=== PATIENT | female | born 1995 | race Caucasian/White ===

== ENCOUNTER 2016-08-19 07:59 | Emergency (ER) | payer OTHER ==
[2016-08-19 08:18] VITALS: BP 101/59
--- NOTE | 2016-08-19 15:43 | UC ---
Ear Complaint HPI - HPI Summary HPI Summary: PT P/W 2 WEEK H/O EAR PAIN IN LEFT EAR. 1 WEEK AGO PT DEVELOPED SORE THROAT, MINIMAL COUGH AND PAIN IN HER OTHER EAR. 4 DAYS AGO, PT DEVELOPED N/V(X3) AND DIARRHEA. - History of Current Complaint Chief Complaint: UCGeneralIllness Stated Complaint: EAR PAIN Time Seen by Provider: 08/19/16 08:47 Hx Obtained From: Patient Hx Last Menstrual Period: 08/17/16 ?: No Onset/Duration: Gradual Onset, Lasting Weeks - 2, Still Present Severity Initially: Moderate Severity Currently: Moderate Pain Intensity: 2 Pain Scale Used: 0-10 Numeric Aggravating Factors: Nothing Alleviating Factors: Nothing Associated Signs/Symptoms: Positive: URI Symptoms. Negative: Discharge, Hearing Loss, Foreign Body Sensation, Trauma to Ear, Swelling @ - Allergies/Home Medications Allergies/Adverse Reactions: Allergies Allergy/AdvReac Type Severity Reaction Status Date / Time No Known Allergies Allergy Verified 11/02/14 09:01 Home Medications: Home Medications traZODone TAB* [Desyrel TAB*] 50 mg PO BEDTIME PRN 08/19/16 [History Confirmed 08/19/16] PMH/Surg Hx/FS Hx/Imm Hx Psychological History Of: Reports: Anxiety, Bipolar Disorder - Surgical History Surgical History: Yes Surgery Procedure, Year, and Place: Gallbladder and bunion removal - Family History Known Family History: Negative: Cardiac Disease, Hypertension, Diabetes - Social History Occupation: Student Alcohol Use: None Substance Use Type: None Smoking Status (MU): Never Smoked Tobacco Review of Systems Constitutional: Negative Skin: Negative Eyes: Negative ENT: Sore Throat, Ear Ache, Nasal Discharge Respiratory: Cough Cardiovascular: Negative Gastrointestinal: Vomiting, Diarrhea Genitourinary: Negative Motor: Negative Neurovascular: Negative Musculoskeletal: Negative Neurological: Negative Psychological: Negative All Other Systems Reviewed And Are Negative: Yes Physical Exam Triage Information Reviewed: Yes Appearance: Well-Appearing, No Pain Distress, Well-Nourished Vital Signs: Initial Vital Signs Temp 98 F 08/19/16 08:12 Pulse 64 08/19/16 08:12 Resp 16 08/19/16 08:12 BP 101/59 08/19/16 08:12 Pulse Ox 100 08/19/16 08:12 Vital Signs Reviewed: Yes Eyes: Positive: Conjunctiva Clear. Negative: Discharge ENT: Positive: Hearing grossly normal, Pharyngeal erythema, Nasal congestion, Nasal drainage, TMs normal. Negative: Tonsillar swelling, Tonsillar exudate, Trismus, Muffled/hoarse voice Dental Exam: Normal Neck: Positive: Supple, Nontender, No Lymphadenopathy Respiratory: Positive: Lungs clear, Normal breath sounds, No respiratory distress, No accessory muscle use Cardiovascular: Positive: RRR, No Murmur Abdomen Description: Positive: Nontender, Soft, McBurney's Point Tenderness. Negative: CVA Tenderness (R), CVA Tenderness (L), Distended, Guarding Bowel Sounds: Positive: Present Musculoskeletal Exam: Normal Neurological: Positive: Alert, Muscle Tone Normal Psychological: Positive: Age Appropriate Behavior Skin Exam: Normal Ear Complaint Course/Dx - Differential Dx/Diagnosis Differential Diagnosis/HQI/PQRI: Cerumen Impaction, Otitis Externa, Otitis Media , Pharyngitis, TMJ Syndrome, URI Provider Diagnoses: URI, GASTROENTERITIS, SEROUS OTITIS Discharge - Discharge Plan Condition: Stable Disposition: HOME Prescriptions: Prochlorperazine TAB* [Compazine Tab*] 5 mg PO Q6H PRN #10 tab PRN Reason: Nausea/Vomiting Patient Education Materials: Prochlorperazine (By mouth), Upper Respiratory Infection (ED), Gastroenteritis (ED), Serous Otitis Media (ED) Forms: *School Release Referrals: SYDNEY Henderson [Primary Care Provider] - (FOLLOW UP IN 3-5 DAYS IF NOT IMPROVING)
== END 2016-08-19 09:39 | disposition home or self-care (01) ==
LOC: UCCORT 07:59
DX: J06.9 Acute upper respiratory infection, unspecified (principal); K52.9 Noninfective gastroenteritis and colitis, unspecified; H65.92 Unspecified nonsuppurative otitis media, left ear
CPT/HCPCS: 81025; 99212; G0463

== ENCOUNTER 2016-08-28 09:07 | Emergency (ER) | payer OTHER ==
[2016-08-28 09:52] VITALS: BP 108/74
--- NOTE | 2016-08-28 10:01 | UC ---
Lower Extremity/Ankle HPI - HPI Summary HPI Summary: PAIN LEFT GREAT TOE X 2 DAYS X STUB HER LEFT GREAT TOE 2 DAYS AGO + PAIN , SWELLING AND BRUISING - History of Current Complaint Chief Complaint: UCLowerExtremity Stated Complaint: LEFT BIG TOE INJURY Time Seen by Provider: 08/28/16 09:37 Hx Obtained From: Patient Hx Last Menstrual Period: 08/14/16 ?: No Onset/Duration: Sudden Onset, Lasting Days - 2, Still Present Severity Initially: Moderate Severity Currently: Moderate Aggravating Factor(s): Standing, Ambulation Alleviating Factor(s): Rest, Ice - Allergies/Home Medications Allergies/Adverse Reactions: Allergies Allergy/AdvReac Type Severity Reaction Status Date / Time No Known Allergies Allergy Verified 08/28/16 09:45 Home Medications: Home Medications Ibuprofen TAB* [Motrin TAB* 800 MG] 800 mg PO Q6H PRN 08/28/16 [History Confirmed 08/28/16] PMH/Surg Hx/FS Hx/Imm Hx Psychological History Of: Reports: Anxiety, Bipolar Disorder - Surgical History Surgical History: Yes Surgery Procedure, Year, and Place: Gallbladder and bunion removal. APPENDECTOMY - Family History Known Family History: Negative: Cardiac Disease, Hypertension, Diabetes - Social History Alcohol Use: Occasionally Substance Use Type: None Smoking Status (MU): Never Smoked Tobacco Review of Systems Constitutional: Negative Skin: Negative Eyes: Negative ENT: Negative Respiratory: Negative Cardiovascular: Negative All Other Systems Reviewed And Are Negative: Yes Physical Exam Triage Information Reviewed: Yes Appearance: Well-Appearing, No Pain Distress, Well-Nourished Vital Signs: Initial Vital Signs Temp 99.3 F 08/28/16 09:46 Pulse 90 08/28/16 09:46 Resp 16 08/28/16 09:46 BP 108/74 08/28/16 09:46 Pulse Ox 100 08/28/16 09:46 Vital Signs Reviewed: Yes Eyes: Positive: Conjunctiva Clear ENT: Positive: Normal ENT inspection, Hearing grossly normal, Pharynx normal Neck: Positive: Supple, Nontender, No Lymphadenopathy Respiratory: Positive: Chest non-tender, Lungs clear, Normal breath sounds Cardiovascular: Positive: RRR, No Murmur, Pulses Normal Musculoskeletal: Positive: Other: - LEFT GREAT TOE: + MILD ECCHYMOSIS, + TENDERNESS MP / DID JOINS , + MILD SWELLING Lower Extremity Course/Dx - Differential Dx/Diagnosis Provider Diagnoses: CONTUSION LEFT GREAT TOE Discharge - Discharge Plan Condition: Stable Disposition: HOME Patient Education Materials: Foot Contusion (ED) Referrals: SYDNEY Henderson [Primary Care Provider] - 7 Days
--- NOTE | 2016-08-28 10:31 | RAD ---
INDICATION: Hyperextension injury to left great toe the previous night TECHNIQUE: 3 views of the left great toe were obtained. FINDINGS: There is a medullary screw spanning the distal left great toe metatarsal. The visualized bones are otherwise adequately corticated and appropriately aligned. IMPRESSION: No radiographic evidence of acute fracture or dislocation. Postoperative findings include intramedullary screws spanning the left great toe distal metatarsal.
== END 2016-08-28 10:48 | disposition home or self-care (01) ==
LOC: UCCORT 09:07
DX: S90.112A Contusion of left great toe without damage to nail, initial encounter (principal); X58.XXXA Exposure to other specified factors, initial encounter; Y92.9 Unspecified place or not applicable
CPT/HCPCS: 99211; G0463

== ENCOUNTER 2017-02-24 07:26 | Emergency (ER) | payer OTHER ==
[2017-02-24 07:37] VITALS: BP 105/68
--- NOTE | 2017-02-24 07:51 | UC ---
Complaint Female HPI - HPI Summary HPI Summary: Urinary frequency x4 days. C/o persistent nausea x2 months. Also c/o swollen lymph nodes to left side of neck x5 months. LMP today. No new sexual partners. No fever or chills. 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 She gets diarrhea when she eats fatty meals since her gallbladder removed. [ End ] - History Of Current Complaint Chief Complaint: UCGeneralIllness Stated Complaint: UTI SYMPTOMS, NAUSEA Time Seen by Provider: 02/24/17 07:44 Hx Obtained From: Patient Hx Last Menstrual Period: 02/24/17 ?: No Onset/Duration: Gradual Onset Timing: Intermittent Severity Initially: Moderate Associated Signs And Symptoms: Positive: Nausea. Negative: Fever, Back Pain, Vaginal Bleeding/Discharge, Vaginal Discharge, Vomiting(# Of Episodes =) - Allergies/Home Medications Allergies/Adverse Reactions: Allergies Allergy/AdvReac Type Severity Reaction Status Date / Time No Known Allergies Allergy Verified 02/24/17 07:30 Home Medications: Home Medications Cetirizine* [ZyrTEC 10 MG TAB*] 10 mg PO DAILY 02/24/17 [History Confirmed 02/24] PMH/Surg Hx/FS Hx/Imm Hx Previously Healthy: Yes - Surgical History Surgical History: Yes Surgery Procedure, Year, and Place: [place] 2014, appy 2015, bunion removal - Family History Known Family History: Negative: Cardiac Disease, Hypertension, Diabetes - Social History Occupation: Student Lives: With Family Alcohol Use: Occasionally Substance Use Type: None Smoking Status (MU): Never Smoked Tobacco Review of Systems Constitutional: Fatigue Skin: Negative Eyes: Negative ENT: Negative Respiratory: Negative Cardiovascular: Negative Gastrointestinal: Diarrhea, Nausea Genitourinary: Dysuria, Frequency Motor: Negative Neurovascular: Negative Musculoskeletal: Negative Neurological: Negative Psychological: Negative All Other Systems Reviewed And Are Negative: Yes Physical Exam Triage Information Reviewed: Yes Appearance: Well-Appearing, No Pain Distress, Well-Nourished Vital Signs: Initial Vital Signs Temp 98.5 F 02/24/17 07:31 Pulse 64 02/24/17 07:31 Resp 16 02/24/17 07:31 BP 105/68 02/24/17 07:31 Pulse Ox 100 02/24/17 07:31 Vital Signs Reviewed: Yes Eye Exam: Normal ENT Exam: Normal Dental Exam: Normal Neck exam: Normal Neck: Positive: Supple, Enlarged Nodes @ - left anterior cervical moderate size < 5mm Respiratory Exam: Normal Cardiovascular Exam: Normal Abdominal Exam: Normal Musculoskeletal Exam: Normal Neurological Exam: Normal Psychological Exam: Normal Skin Exam: Normal Complaint Female Dx - Course Course Of Treatment: Variety of concerns. Advised to establish care with PCP as she states she can never get in to [facility]. Go to [facility] for f/u. Consider PCP Belinda or on Eduard Hirsch. If Sx not improved needs f/u for imaging of anterior cervical lymph node but treat as lymphadenitis at this time. Non smoker. Lymph node swollen on and off for a couple months but worsened in the past 2 weeks. She is aware if node not completely improved 100 % she may need imaging and can return here or go to PCP. Take meds prn for diarrhea. Consider PPI for 2 weeks if develops GERD like Sx. U/A clean and LMP today. - Differential Dx/Diagnosis Differential Diagnosis/HQI/PQRI: Ovarian Cyst, Urinary Tract Infection Provider Diagnoses: Lymphadenitis, Diarrhea Discharge - Discharge Plan Condition: Good Disposition: HOME Prescriptions: Cholestyramine [Questran] 4 gm PO BID #30 btl Doxycycline (Monohydrate) [Doxycycline Monohydrate] 100 mg PO BID #20 cap Patient Education Materials: Adenitis (ED) Referrals: SYDNEY Henderson [Primary Care Provider] - 3 Days Additional Instructions: As we discussed you can use cholestyramine or bile acid sequestrants to reduce diarrhea symptmos in the future. If your lymph nodes are not 100% improved in 2 weeks then go to your PCP or here for potential imaging. For nausea consider paris cynthia or Vitamin B 6. Good luck with finding a new PCP if needed.
== END 2017-02-24 08:16 | disposition home or self-care (01) ==
LOC: UCCORT 07:26
DX: I88.9 Nonspecific lymphadenitis, unspecified (principal); R19.7 Diarrhea, unspecified; R11.0 Nausea; Z90.49 Acquired absence of other specified parts of digestive tract
CPT/HCPCS: 81003; 99212; G0463

== ENCOUNTER 2017-11-27 07:03 | Emergency (ER) | payer OTHER ==
[2017-11-27 07:26] VITALS: BP 109/71
--- NOTE | 2017-11-27 07:42 | UC ---
Throat Pain/Nasal Mahad HPI - HPI Summary HPI Summary: Pt presents with 5-6 days cough, nasal congestion. pt states was initially clear sputum, now progressed to green. + body aches and fatigue. No sob. intermittent wheeze - improved with coughing. Pt has used OTC Nyquil and Sudafed with little relief. No rash. No cp. No abd pain. No nausea, vomiting. No rash. LMP 2 weeks Pt's medications reviewed this visit. - History of Current Complaint Chief Complaint: UCRespiratory Stated Complaint: UPPER RESPITORY,COUGH Time Seen by Provider: 11/27/17 07:40 Hx Obtained From: Patient Hx Last Menstrual Period: ~11/15/17 ?: No Onset/Duration: Gradual Onset Severity: Mild Pain Intensity: 0 Cough: Sputum Appears - green Associated Signs & Symptoms: Positive: Negative - Allergies/Home Medications Allergies/Adverse Reactions: Allergies Allergy/AdvReac Type Severity Reaction Status Date / Time No Known Allergies Allergy Verified 11/27/17 07:30 Home Medications: Home Medications Escitalopram (NF) [Lexapro 5 mg (NF)] 5 mg PO DAILY 11/27/17 [History Confirmed 11/27/17] PMH/Surg Hx/FS Hx/Imm Hx Previously Healthy: Yes - Surgical History Surgical History: Yes Surgery Procedure, Year, and Place: Appendectomy, 2014, [facility], [place]; Cholecystectomy, 2013, [place]; Left Bunionectomy, 2012, [place] - Family History Known Family History: Positive: None Negative: Cardiac Disease, Hypertension, Diabetes - Social History Occupation: Employed Full-time - social work Lives: With Family Alcohol Use: Rare Substance Use Type: Marijuana Substance Use Comment - Amount & Last Used: Five Days a Week Smoking Status (MU): Never Smoked Tobacco Review of Systems Constitutional: Chills, Fatigue Respiratory: Cough All Other Systems Reviewed And Are Negative: Yes Physical Exam Triage Information Reviewed: Yes Appearance: Well-Appearing, No Pain Distress, Well-Nourished Vital Signs: Initial Vital Signs Temp 99.4 F 11/27/17 07:21 Pulse 88 11/27/17 07:21 Resp 16 11/27/17 07:21 BP 109/71 11/27/17 07:21 Pulse Ox 100 11/27/17 07:21 Vital Signs Reviewed: Yes Eye Exam: Normal Eyes: Positive: Conjunctiva Clear ENT: Positive: Hearing grossly normal, Other - fluid left ear turbinates inflammed and boggy + PND uvula midline No exudate, no erythema Dental Exam: Normal Neck exam: Normal Neck: Positive: Supple, Nontender Respiratory: Positive: Other: - coarse cough intermittent scattered wheeze + BS throughout no retraction, no accessory muscle use Cardiovascular Exam: Normal Abdominal Exam: Normal Musculoskeletal Exam: Normal Musculoskeletal: Positive: Strength Intact Neurological Exam: Normal Neurological: Positive: Alert Psychological Exam: Normal Psychological: Positive: Normal Response To Family Skin Exam: Normal Throat Pain/Nasal Course/Dx - Course Course Of Treatment: Pt presents with 6 days cough, progressive to green sputum. Pt with fatigue and tactile fever. Pt with coarse cough and scattered wheeze on exam. Pt works in public environment - social work. Rx z pack. flonase. secretion precaution. hydrate. return precaution. pt comfortable and in agreement with plan - Differential Dx/Diagnosis Provider Diagnoses: acute bronchitis Discharge - Sign-Out/Discharge Documenting (check all that apply): Discharge/Admit/Transfer - Discharge Plan Condition: Stable Disposition: HOME Prescriptions: Azithromycin TAB* [Zithromax TAB (Z-CECILY) 250 mg #6 tabs] 2 tab PO .TODAY, THEN 1 DAILY #1 cecily Fluticasone NASAL SPRAY 50MCG* [Flonase NASAL SPRAY 50MCG*] 2 spray BOTH NARES DAILY #1 btl Patient Education Materials: Acute Bronchitis (ED) Referrals: SYDNEY Henderson [Primary Care Provider] - Additional Instructions: - Take antibiotics exactly as prescribed until gone -Stay well hydrated - avoid excess caffeine and all alcohol - eat regular, healthy meals - These infections are spread by secretions - do NOT share eating or drinking utensils - clean items you share with other people such as cell phones, computer mouse, TV remote, computer tablets,etc. Once you have been antibiotics for 2 days, change your toothbrush and your pillowcase. - Use nasal spray as prescribed -Contact your doctor to arrange a follow-up appointment this week if your symptoms persist. Call your doctor, return here or go to the emergency department with any questions or concerns - Billing Disposition and Condition Condition: STABLE Disposition: HOME
== END 2017-11-27 07:59 | disposition home or self-care (01) ==
LOC: UCCORT 07:03
DX: J20.9 Acute bronchitis, unspecified (principal)
CPT/HCPCS: 99212; G0463

== ENCOUNTER 2017-12-03 07:11 | Emergency (ER) | payer OTHER ==
--- NOTE | 2017-12-03 07:23 | UC ---
Respiratory Complaint HPI - History of Current Complaint Stated Complaint: COUGH Time Seen by Provider: 12/03/17 07:22 Hx Last Menstrual Period: ~11/15/17 - Allergies/Home Medications Allergies/Adverse Reactions: Allergies Allergy/AdvReac Type Severity Reaction Status Date / Time No Known Allergies Allergy Verified 11/27/17 07:30 PMH/Surg Hx/FS Hx/Imm Hx - Surgical History Surgical History: Yes Surgery Procedure, Year, and Place: Appendectomy, 2014, [facility]; Cholecystectomy, 2013, [place]; Left Bunionectomy, 2012, [place] - Family History Known Family History: Positive: None Negative: Cardiac Disease, Hypertension, Diabetes - Social History Alcohol Use: Rare Substance Use Type: Marijuana Substance Use Comment - Amount & Last Used: Five Days a Week Smoking Status (MU): Never Smoked Tobacco Discharge - Discharge Plan Referrals: SYDNEY Dyson,SYDNEY [Primary Care Provider] -
[2017-12-03 08:05] VITALS: BP 96/66
[2017-12-03] MEDS ORDERED: Albuterol 2.5 MG/3 ML NEB.SOL* (0.083%) INH ONE (08:27)
--- NOTE | 2017-12-03 08:34 | UC ---
UC General HPI - HPI Summary HPI Summary: pt is c/o a 3 week hx of cough. she was seen here 1 week ago and tx with a zpak for bronchitis with no relief. just prior to that, she was tx with amoxicillin for ant ent issue. prior to the amoxicliin, she was tx with keflex and zpak for a uti and sinus infection combined. she has no abdominal pain or diarrhea. the cough is congested and she admits to sob but has no fever, cp, v/d. she has had no whooping or vomiting or syncope from the cough and her immunizations are utd. no hx asthma or smoking. no weight loss. - History of Current Complaint Hx Obtained From: Patient Hx Last Menstrual Period: 11/11/17 Onset/Duration: Gradual Onset Timing: Constant Pain Intensity: 4 Aggravating: activity Alleviating: nothing Associated Signs & Symptoms: Positive: SOB. Negative: Cough, Diaphoresis, Fever , Hemoptysis, Wheezing <Julieta Butler - Last Filed: 12/03/17 09:20> <Lenka Sibley - Last Filed: 12/03/17 09:31> - History of Current Complaint Chief Complaint: UCRespiratory Stated Complaint: COUGH Time Seen by Provider: 12/03/17 07:22 - Allergy/Home Medications Allergies/Adverse Reactions: Allergies Allergy/AdvReac Type Severity Reaction Status Date / Time No Known Allergies Allergy Verified 12/03/17 07:55 PMH/Surg Hx/FS Hx/Imm Hx - Additional Past Medical History Additional PMH: pneumonia post appyendectomy, benign cervical adenopathy, mono. - Surgical History Surgical History: Yes Surgery Procedure, Year, and Place: Appendectomy, 2014, [facility]; Cholecystectomy, 2013, [place]; Left Bunionectomy, 2012, [place]. REMOVAL OF A LYPOMA AND LYMPH NODE- BENIGN, AUG 2017 - Family History Known Family History: Positive: None Negative: Cardiac Disease, Hypertension, Diabetes - Social History Occupation: Employed Full-time Lives: With Family Alcohol Use: Rare Substance Use Type: Marijuana Substance Use Comment - Amount & Last Used: Five Days a Week Smoking Status (MU): Never Smoked Tobacco - Immunization History Vaccination Up to Date: Yes <Julieta Butler - Last Filed: 12/03/17 09:20> Review of Systems Constitutional: Negative Skin: Negative Eyes: Negative ENT: Negative Respiratory: Shortness Of Breath, Cough Cardiovascular: Negative Gastrointestinal: Negative Genitourinary: Negative Motor: Negative Neurovascular: Negative Musculoskeletal: Negative Neurological: Negative Psychological: Negative Is Patient Immunocompromised?: No All Other Systems Reviewed And Are Negative: Yes <Julieta Butler - Last Filed: 12/03/17 09:20> Physical Exam Triage Information Reviewed: Yes Appearance: Well-Appearing Vital Signs: Initial Vital Signs Temp 98.6 F 12/03/17 07:56 Pulse 79 12/03/17 07:56 Resp 16 12/03/17 07:56 BP 96/66 12/03/17 07:56 Pulse Ox 100 12/03/17 07:56 Vital Signs Reviewed: Yes Eyes: Positive: Conjunctiva Clear ENT: Positive: Pharynx normal, TMs normal. Negative: Nasal congestion, Nasal drainage Neck: Positive: Supple, Nontender Respiratory: Positive: No respiratory distress, Decreased breath sounds, Other: - Occasional NPC. Negative: Wheezing Cardiovascular: Positive: RRR, No Murmur Abdomen Description: Positive: Nontender, No Organomegaly, Soft Bowel Sounds: Positive: Present Musculoskeletal: Positive: ROM Intact, No Edema Neurological: Positive: Alert Psychological: Positive: Age Appropriate Behavior Skin Exam: Normal <Julieta Butler - Last Filed: 12/03/17 09:20> Vital Signs: Initial Vital Signs Temp 98.6 F 12/03/17 07:56 Pulse 79 12/03/17 07:56 Resp 16 12/03/17 07:56 BP 96/66 12/03/17 07:56 Pulse Ox 100 12/03/17 07:56 <Lenka Sibley - Last Filed: 12/03/17 09:31> Re-Evaluation - Re-Evaluation Second Eval Re-Evaluation Time: 09:20 Change: Improved - much better aeration and less cough <Julieta Butler - Last Filed: 12/03/17 09:20> Course/Dx - Course Course Of Treatment: non toxic, not hypoxic. not typical for pertussis plus pt already tx with zpak x2 and she is immunized. no concern for PE. do not feel pneumonia and no indications for antibiotics. no s/s's c-diff but probiotic and yogurt with lives cultures advised. - Differential Dx - Multi-Symptom Provider Diagnoses: cough. bronchospasm. L upper lobe airspace disease <Julieta Butler - Last Filed: 12/03/17 09:20> Discharge - Sign-Out/Discharge Documenting (check all that apply): Discharge/Admit/Transfer - Billing Disposition and Condition Condition: IMPROVED Disposition: HOME <Julieta Butler - Last Filed: 12/03/17 09:20> - Billing Disposition and Condition Condition: IMPROVED Disposition: HOME <Lenka Sibley - Last Filed: 12/03/17 09:31> - Discharge Plan Condition: Improved Disposition: HOME Prescriptions: Albuterol HFA INHALER* [Ventolin HFA Inhaler*] 2 puff INH Q6H #1 mdi predniSONE TAB* [Deltasone TAB*] 40 mg PO DAILY 5 Days #10 tab Patient Education Materials: Bronchospasm (ED), Acute Cough (ED) Referrals: SYDNEY Henderson [Primary Care Provider] - 5 Days Additional Instructions: YOU MUST FOLLOW UP FN FOR RECHECK AND ONGOING EVALUATION LEFT UPPER LOBE AIRSPACE DISEASE. START CULTURELLE DAILY AND ADD YOGURT WITH LIVE ACTIVE CULTURES GIVE RECENT MULTIPLE ANTIBIOTICS Attestation Statement User Type: Provider - I was available for consult. This patient was seen by the GERTRUDIS. The patient was not presented to, seen by, or examined by me. -Kia <Lenka Sibley - Last Filed: 12/03/17 09:31>
--- NOTE | 2017-12-03 09:12 | RAD ---
HISTORY: Cough COMPARISONS: None VIEWS: 4: Frontal dual-energy and lateral views of the chest. FINDINGS: CARDIOMEDIASTINAL SILHOUETTE: The cardiomediastinal silhouette is normal. HOLLAND: The holland are normal. PLEURA: The costophrenic angles are sharp. No pleural abnormalities are noted. LUNG PARENCHYMA: There is mild patchy alveolar opacification of the left upper lobe. ABDOMEN: The upper abdomen is clear. There is no subphrenic gas. BONES AND SOFT TISSUES: No bone or soft tissue abnormalities are noted. OTHER: None. IMPRESSION: MILD PATCHY AIRSPACE DISEASE OF THE LEFT UPPER LOBE. RECOMMEND FOLLOW-UP UNTIL RESOLUTION TO EXCLUDE UNDERLYING PULMONARY PARENCHYMAL PATHOLOGY.
== END 2017-12-03 09:39 | disposition home or self-care (01) ==
LOC: UCCORT 07:11
DX: R05 Cough (principal); J98.01 Acute bronchospasm; J98.4 Other disorders of lung
CPT/HCPCS: 71046; 99212; G0463